=== PATIENT | female | born 1975 | race African-American/Black ===

== ENCOUNTER 2025-01-29 21:10 | Emergency (ER) | payer SELFPAY ==
[2025-01-29 21:12] VITALS: BP 107/83; PULSE 90; RESP 16; TEMP 35.8; O2SAT 98
[2025-01-29 21:39] LABS: Bilirubin Negative (Negative); Blood Small (Negative); Clarity Clear (Clear); Glucose Negative (Negative); Ketones Trace mg/dL (Negative); Leukocyte Esterase Negative (Negative); Nitrite Negative (Negative); Urobilinogen 0.2 mg/dL (Up to 0.2); pH 6.5 (5-8)
--- NOTE | 2025-01-29 21:50 | W.ED.GENAD ---
Discharge Plan Disposition Patient Disposition: Home Discharge Details Clinical Impression: Cramping of feet Primary Care Provider: [facility] Provider: Iris Pacheco Home Meds and New Rx's Prescriptions: No Action No Known Home Meds Discharge Instructions Instructions: Muscle Spasm ED Additional Instructions: Please call your primary care provider first thing Thursday to schedule follow-up appointment. A referral to podiatry may be helpful to further look into the cause of your foot cramping and sweating. Continue to work with your CUSTOM TAILOR to manage your fibroids Continue elevating your feet above heart level. Use Epsom salt soaks. Muscle rubs may also be helpful. Please also look at the instructions in the included packet, as there may be some helpful information Return to emergency care if you develop new chest pains, feeling like you are going to pass out, significant leg weakness or numbness, or if you are very worried and need to be rechecked again immediately. HPI General Date/Time Provider Initiated Documentation: 01/29/25 21:13. HPI Narrative: Mónica is a 49-year-old female who presents to the emergency department today for evaluation of bilateral leg cramping. She reports intense spasms in her feet, originating from the toes and extending upwards, causing prominent veins and excruciating pain. 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 No fevers/chills, chest pain, shortness of breath, distal numbness/tingling, recent trauma, pedal edema, change in bowel or bladder function, change in appetite. She does find relief with elevating her feet and warm water soaks She feels her primary care physician is not addressing her concerns and seeks a second opinion. Her feet become moist upon contact with water, leading to skin peeling, excessive perspiration, and sensitivity. She plans to wear sandals to prevent sweating. She applies deodorant to her feet to reduce sweating. She suspects the issue may be related to uterine fibroids. Despite trying various footwear, she has not found relief and manages pain through elevation, soaking, and foot exercises. Past medical history significant for anemia and uterine fibroids. She reports that she has a history of significant anemia with low blood counts, leading to fatigue, and is currently at the point of requiring transfusions but has chosen to forego them. Previous medical providers have said that they believe her leg cramps are associated with her fibroids which also cause multiple abdominal symptoms. She lives in [facility] [place], is currently visiting the area. Related Data Home Medications ?Medication ?Instructions ?Recorded ?Confirmed Unknown [No Known Home Meds] 01/29/25 01/29/25 Allergies Allergy/AdvReac Type Severity Reaction Status Date / Time morphine AdvReac Mild Other (See Verified 01/29/25 21:27 Comment) General Stated Complaint: GenMedical FENG: 3 Exam Narrative Exam Narrative: General Appearance: Normal. Patient is alert and oriented, no acute distress. Vital signs: Within normal limits. Respiratory: Lungs auscultated, easy work of breathing, lung sounds clear bilaterally. Cardiovascular: Heart examined, normal heart sounds, regular rate and rhythm. Distal pulses intact to bilateral lower extremities. Extremities: No leg swelling or ankle/foot swelling. Sensation intact to feet. Mild scaling noted on heels. Brisk cap refill. Full painless range of motion of toes and ankles/knees. Normal gait. Skin: Warm and dry, no rash. Psychiatric: Normal. Course Vital Signs Vital signs: Vital Signs Temperature 35.8 C L 01/29/25 21:12 Pulse 90 01/29/25 21:12 Respiratory Rate 16 01/29/25 21:12 Blood Pressure 107/83 01/29/25 21:12 Pulse Oximetry 98 01/29/25 21:12 Temperature 35.8 C L 01/29/25 21:12 Temperature Source Temporal Artery Scan 01/29/25 21:12 Pulse 90 01/29/25 21:12 Respiratory Rate 16 01/29/25 21:12 Blood Pressure 107/83 01/29/25 21:12 Blood Pressure Position Sitting 01/29/25 21:12 Pulse Oximetry 98 01/29/25 21:12 Oxygen Delivery Method Room Air 01/29/25 21:12 Oxygen Flow Rate 0 01/29/25 21:12 Pain Level 8 01/29/25 21:12 Lab/Test Results Lab/Test Results: Laboratory Tests Range/Units 01/29/25 21:21 Urine Color (Yellow) Yellow Urine Clarity (Clear) Clear Urine pH (5-8) 6.5 Ur Specific [place] (1.005-1.025) 1.020 Urine Protein (Neg-Trace) mg/dL Negative Urine Ketones (Negative) mg/dL Trace H Urine Blood (Negative) Small H Urine Nitrite (Negative) Negative Urine Bilirubin (Negative) Negative Urine Urobilinogen (Up to 0.2) mg/dL 0.2 Ur Leukocyte Esterase (Negative) Negative Urine Glucose (Negative) mg/dL Negative Medical Decision Making Initial Assessment: Patient presents with leg cramping and sweating to feet; otherwise is feeling well. DDx includes but is not limited to: Electrolyte imbalance, dehydration, anemia, nerve impingement, PVD/PAD, hyperhidrosis, neuropathy. No red flags concerning for acute infectious etiology or serious emergent/life-threatening condition at this time ED Course: -I did offer x-ray and labs to rule out electrolyte imbalances, worsening of anemia, thyroid dysfunction, and potential foot structural causes of cramping. She declined workup, says that she just wanted a second opinion based on physical exam only. - Advised foot elevation - Recommended muscle rubs ([place] or IcyHot) - Suggested wearing sandals and cotton socks with regular changes - Referral to a asbestos cloth inspector for further evaluation Final Assessment: Leg cramping Clinical Impression: - Leg cramping, unclear etiology Disposition: - Follow-Up: Recommend follow-up with podiatry, CUSTOM TAILOR, and primary care for further evaluation/management on an outpatient basis. MDM Components Evaluation: - Number of Differential Diagnoses or Management Options: Nerve issues, hyperhidrosis, anemia - Amount and Complexity of Data Reviewed: X-ray, blood work for electrolytes and thyroid function - Risk of Complication and Morbidity or Mortality: Potential nerve issues, anemia affecting oxygenation, complications from uterine fibroids Patient consented to the use of [facility] Quality:SDOH Health Related Social Needs: No Data to Display [facility] All Active Problems (Updated 01/29/25 @ 21:55 by Iris Jiménez) Cramping of feet (Acute) Social History Smoking/Tobacco Use Status: Never Smoking risk assessment performed?: Yes Alcohol Intake: never Drug use: Never Substance use type: does not use
[2025-01-29 21:51] LABS: Bacteria Rare HPF (Negative); C & S Indicated? No; Casts Negative LPF (Negative); Crystals Negative HPF (Negative); Epithelial Cells Few HPF (Negative); Mucus Trace (Negative); WBC 0-2 HPF (0-5)
[2025-01-29 22:05] VITALS: RESP 14
== END 2025-01-29 22:07 | disposition home or self-care (01) ==
LOC: ER 22:10
PROVIDERS: Emergency Provider Nurse Practitioner Family
DX: M62.838 Other muscle spasm (principal)
CPT/HCPCS: 80053; 99283; 81003; 81015; 84443; 85025